=== PATIENT | male | born 1945 | race Caucasian/White ===

== ENCOUNTER → 2016-06-23 | Outpatient (CLI) | payer BC, OTHER ==
[2016-06-23 11:51] LABS: BASOPHILS # (AUTO) 0.04 10*3/UL; BASOPHILS % (AUTO) 0.4 % (0-1); EOSINOPHILS % (AUTO) 0.2 % (0-8); HEMATOCRIT 49.9 % (42.0-52.0); HEMOGLOBIN 16.6 g/dL (14.0-18.0); IMM GRAN % (AUTO) 0.5 % (0-5); IMM GRAN# (AUTO) 0.05 10*3/UL; LYMPHOCYTES # (AUTO) 0.89 10*3/uL; LYMPHOCYTES % (AUTO) 9.5 % (10-50); MEAN CORPUSCULAR HEMOGLOBIN 29.4 PG (27-31); MEAN CORPUSCULAR HGB CONC 33.3 g/dL (33-37); MEAN PLATELET VOLUME 9.6 FL (7.4-12.2); MONOCYTES # (AUTO) 0.66 10*3/UL (0.3-0.8); MONOCYTES % (AUTO) 7.1 % (5-15); NEUTROPHILS # (AUTO) 7.67 10*3/UL; NEUTROPHILS % (AUTO) 82.3 % (50-80); RDW COEFFICIENT OF VARIATION 14.4 % (11.5-14.5); RED BLOOD COUNT 5.65 10^6/uL (4.70-6.10); WHITE BLOOD COUNT 9.33 10^3/uL (4.8-10.8)
[2016-06-23 11:57] LABS: PLATELET MORPHOLOGY COMMENT NORMAL MORPHOLOGY (NORM)
[2016-06-23 11:59] LABS: PROTHROMBIN TIME 36.1 secs (9.7-11.4)
[2016-06-23 12:01] LABS: BILIRUBIN,TOTAL 1.2 mg/dL (0.3-1.2); BUN/CREATININE RATIO 16.42 (6-20); CALCIUM 9.5 mg/dL (8.7-10.7); CREATININE 1.4 mg/dL (0.70-1.50); POTASSIUM 4.3 meq/L (3.8-5.2); TOTAL PROTEIN 7.2 g/dL (6.1-8.0)
[2016-06-23 12:21] LABS: CREATINE KINASE MB 3.3 NG/DL (0.00-5.00); TROPONIN I 0.012 ng/mL (< 0.040)
--- NOTE | 2016-06-23 12:22 | DI ---
PA /LATERAL CHEST X-RAY, 06/23/2016 10:58 AM : Clinical History: Shortness of breath on exertion. Previous Exam: None at this facility. There is no acute soft tissue or bony abnormality. The patient is status post right humeral head repl acement and status post total reverse left shoulder replacement with resection of the lateral heads o f both clavicles. The heart size is normal. Lungs are clear. Mediastinal structures are normal. There are no pulmonary nodules. Reading: Normal chest x-ray. The patient has had previous bilateral shoulder replacements.
--- NOTE | 2016-06-23 16:18 | EKG ---
[address] [address] Measurements Intervals [place] Rate: 102 P: CA: 0 QRS: -3 QRSD: 100 T: -12 QT: 339 QTc: 398 Interpretive Statements ATRIAL FIBRILLATION WITH RAPID VENTRICULAR RESPONSE ABNORMAL RHYTHM ECG Compared to ECG 11/24/2012 09:53:28 No significant changes Electronically Signed On 06-24-16 17:18:03 MST by Jayden Alvarado [id number]
== END ==
LOC: MOB RAD 11:04
PROVIDERS: ATTEND Physician Assistant
DX: R06.02 Shortness of breath (principal); R07.9 Chest pain, unspecified; I48.91 Unspecified atrial fibrillation
CPT/HCPCS: 36415; 71020; 80053; 82553; 83690; 83880; 84484; 85025; 85610; 93005; 93010

== ENCOUNTER 2017-03-24 16:48 | Inpatient (IN) ==
[~2017-03-24 16:48] MED LIST: IPRATROPIUM/ALBUTEROL SULFATE 3 ML NEB NEB ONE
[2017-03-24] MEDS ORDERED: NORMAL SALINE 10 ML SYRINGE FLUSH IVP PRN ×2 (16:51→20:12)
[2017-03-24] MEDS ORDERED: IPRATROPIUM/ALBUTEROL SULFATE 3 ML NEB NEB ONE (16:51)
--- NOTE | 2017-03-24 17:22 | EKG ---
[address] [address] Measurements Intervals [place] Rate: 130 P: PA: 0 QRS: 78 QRSD: 92 T: -19 QT: 287 QTc: 364 Interpretive Statements ATRIAL FIBRILLATION WITH RAPID VENTRICULAR RESPONSE LOW QRS VOLTAGE IN EXTREMITY LEADS [QRS DEFLECTION < 0.5 mV IN LIMB LEADS] ABNORMAL QRS-T ANGLE [QRS-T AXIS DIFFERENCE > 60] INTERPRETATION BASED ON A DEFAULT AGE OF 40 YEARS Compared to ECG 06/23/2016 12:17:51 Low QRS voltage now present Electronically Signed On 03-25-17 09:27:58 MST by Osmin Bennett MD [id number]
[2017-03-24 17:26] LABS: BLOOD UREA NITROGEN 32 mg/dL (7-22); BUN/CREATININE RATIO 26.66 (6-20); MAGNESIUM 1.9 mg/dL (1.6-2.4); SERUM ALBUMIN 4.3 g/dL (3.5-4.8)
[2017-03-24 17:40] LABS: Hematocrit [HCT] 43.3 % (42.0-52.0); Hemoglobin [HGB] 13.6 g/dL (14.0-18.0); MEAN CORPUSCULAR HEMOGLOBIN 26.1 PG (27-31); MEAN CORPUSCULAR HGB CONC 31.4 g/dL (33-37); MEAN CORPUSCULAR VOLUME 83 FL (80-90); MEAN PLATELET VOLUME 7.2 FL (7.4-12.2); PLATELET MORPHOLOGY COMMENT NORMAL MORPHOLOGY (NORM); RBC MORPHOLOGY COMMENT NORMAL MORPHOLOGY (NORM); WBC MORPHOLOGY COMMENT NORMAL MORPHOLOGY (NORM)
[2017-03-24 17:41] LABS: BAND NEUTROPHILS % 1 % (0-10); BASOPHILS % (MANUAL) 0 % (0-1); EOSINOPHILS % (MANUAL) 0 % (0-8); MONOCYTES % (MANUAL) 7 % (0-12); NEUTROPHILS % (MANUAL) 82 % (50-80)
[2017-03-24] MEDS ORDERED: FUROSEMIDE 10 MG/1 ML - 2 ML VIAL IVP ONE (17:44)
[2017-03-24] MEDS ORDERED: Warfarin Tab 2 MG TAB PO ONE (18:31)
--- NOTE | 2017-03-24 18:31 | PDOC ---
Past Medical History Tobacco Use: Never Smoker Do you dip or chew tobacco: Yes In the Past 12 Months, Have Used or Abuse Any of the Following Substance: None Medication / Allergies Home Medications: Home Medications Medication Instructions Recorded Confirmed Type Fluoxetine HCl 40 mg PO DAILY 11/24/12 03/24/17 History Losartan Potassium 100 mg PO DAILY tab 11/24/12 03/24/17 History Pantoprazole Sodium 40 mg PO BID tab 11/24/12 03/24/17 History Propranolol HCl 40 mg PO BID ml 11/24/12 03/24/17 History Warfarin Sodium 3 mg PO DAILY tab 11/24/12 03/24/17 History Carbidopa/Levodopa [Sinemet 10-100 3 tab PO TID tab 06/23/16 03/24/17 History Mg Tablet] gabapentin 300 mg capsule 300 mg PO TID #30 cap 01/26/17 03/24/17 Rx Allergies/Adverse Reactions: Allergies 3 Allergy/AdvReac Type Severity Reaction Status Date / Time Penicillins Allergy HIVES Verified 03/24/17 16:49 vancomycin Allergy HIVES Verified 03/24/17 16:49 Exam - Vitals Vital Signs: Vital Signs Temperature 98.0 F Temperature Source Temporal Artery Scan Pulse Rate [Pulse Oximeter 132 Right] Pulse Rate 127 Respiratory Rate 24 Blood Pressure [Left Arm] 147/115 Pulse Ox 100 Oxygen Delivery Method Room Air Height 5 ft 11 in Weight 205 lb Results - Labs CBC and BMP: 03/25/17 06:25 03/25/17 06:25 Assessment and Plan - Patient Problems (1) CHF (congestive heart failure) Current Visit: Yes Status: Acute Comment: lasix dripp diuresed about 6 L BUN slightly going up. Lasix drip. 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 Code(s): I50.9 - Heart failure, unspecified (2) Pneumonia Current Visit: Yes Status: Acute Comment: levaquin daily Code(s): J18.9 - Pneumonia, unspecified organism (3) Atrial fibrillation Current Visit: Yes Status: Acute Comment: rate controlled /on coumadin give extra 1 mg at the give her extra labetalol 50 mg on the night better control I don't think we have good control with the Inderal he is taking I will stop that and start Cardizem CD 240 Code(s): I48.91 - Unspecified atrial fibrillation
[2017-03-24] MEDS ORDERED: Levofloxacin (Premix) 750 MG/150 ML PIGGYBACK IV ONE (18:34)
[2017-03-24] MEDS ORDERED: Sodium Chloride 0.9% 1,000 ML PRIMARY IV SCH (19:30)
--- NOTE | 2017-03-24 19:53 | DI ---
EXAM: XR Chest, 1 View CLINICAL HISTORY: dyspnea TECHNIQUE: Frontal view of the chest. COMPARISON: Chest x-ray 06/23/16 FINDINGS: Lungs: Reduced lung volumes with patchy atelectasis. Some accentuation of interstitial markings that could be from mild edema. Pleural space: Blunting of the costophrenic angles/effusions, better seen on CT No pneumothorax. Heart: Cardiomegaly. Mediastinum: Unremarkable. Bones/joints: Bilateral shoulder replacements. IMPRESSION: Reduced lung volumes with patchy atelectasis. Some accentuation of interstitial markings that could be from mild edema.
[2017-03-24] MEDS ORDERED: LIDOCAINE HCL 2 % 10 ML JELLY URO-JECT TOPICAL PRN (20:12)
[2017-03-24] MEDS ORDERED: LIDOCAINE W/ SODIUM BICARB 0.5 ML SYR SUBD PRN (20:12)
--- NOTE | 2017-03-24 20:30 | DI ---
EXAM: CT Angiography Chest With Intravenous Contrast CLINICAL HISTORY: sob elevated d-dimer TECHNIQUE: Axial computed tomographic angiography images of the chest with intravenous contrast using pulmonary embolism protocol. MIP reconstructed images were created and reviewed. COMPARISON: Chest x-ray 03/24/17 FINDINGS: Pulmonary arteries: No central pulmonary embolus. Aorta: No thoracic aortic aneurysm. Lungs: Mild pulmonary edema. Pleural space: Large bilateral pleural effusions. No pneumothorax. Heart: Cardiomegaly. Bones/joints: Bilateral shoulder replacements. No acute fracture. Soft tissues: Unremarkable. Lymph nodes: Unremarkable. No enlarged lymph nodes. Upper abdomen: Surgical clips in right upper abdomen. IMPRESSION: Failure with edema and effusions.
--- NOTE | 2017-03-24 20:38 | PDOC ---
General Adult HPI - General Chief Complaint: Dyspnea Stated Complaint: dyspnea Date Seen by Provider: 03/24/17 Time Seen by Provider: 16:45 Source: POSITIVE: Patient Exam Limitations: POSITIVE: No limitations Nurse's Notes Reviewed & Considered: Yes - History of Present Illness Initial Comment: The patient is a 72-year-old male who presents to the emergency department with increased shortness of breath. He states that he developed some upper respiratory symptoms after multiple family members have become ill with similar symptoms about a week ago. He had associated congestion and cough. Over the past 24 hours she has developed increased shortness of breath and wheezing. He also has noticed some increased swelling in his ankles. He has some tightness in his chest which she attributes to his breathing. He does have a history of atrial fibrillation and Parkinson's. He is on warfarin. He has had some chills and shakes over the past 24 hours. Have you received a tetanus shot in the past 10 years?: No - Patient Home Medications Home Medications: Home Medications Fluoxetine HCl 40 mg PO DAILY 11/24/12 Losartan Potassium 100 mg PO DAILY tab 11/24/12 Pantoprazole Sodium 40 mg PO BID tab 11/24/12 Propranolol HCl 40 mg PO BID ml 11/24/12 Warfarin Sodium 3 mg PO DAILY tab 11/24/12 Carbidopa/Levodopa [Sinemet 10-100 Mg Tablet] 3 tab PO TID tab 06/23/16 gabapentin 300 mg capsule 300 mg PO TID #30 cap 01/26/17 - Patient Allergies Allergies/Adverse Reactions: Allergies 3 Allergy/AdvReac Type Severity Reaction Status Date / Time Penicillins Allergy HIVES Verified 03/24/17 16:49 vancomycin Allergy HIVES Verified 03/24/17 16:49 Past Medical History - heen HEENT History: Denies History Cardiovascular History: Hypertension, Arrhythmia Additional Cardiovasular History: atrial fibrillation Respiratory History: Sleep Apnea, Home CPAP Use Gastrointestinal History: Denies History Genitourinary History: Denies History Endocrine History: Denies History Musculoskeletal History: Denies History Prosthesis or Implant: No Neurological History: Parkinson's Blood Disorders: Denies History Psychiatric History: Denies History Male Reproductive History: Denies History Cancer History: Denies History In Past Year Been Physically Harmed or Verbally Threatened: No History of MDRO: No Tobacco Use: Never Smoker In the Past 12 Months, Have Used or Abuse Any Substance: None Previous Surgical History: Yes Type / Date of Surgery: goran, appy, carpal tunnel, cataracts, rt shoulder x4, lt shoulder x3, back surgeries Anesthesia Reactions: No Malignant Hyperthermia: No Family History of Malignant Hyperthermia: No Significant Family History: No pertinent family hx Past Medical History Reviewed: Reviewed - No Changes ROS - Limitations ROS Limitations: No Limitations Constitution: REPORTS: Chills Cardiovascular: REPORTS: Edema (Both ankles over the past day or 2). DENIES: Chest Pain, Heart Racing, Heart Palpitations Respiratory: REPORTS: Cough Non Productive, Cough Productive, Shortness Of Breath, Wheezing Neurological: DENIES: Headache, Numbness, Weakness Gastrointestinal: REPORTS: Denies GI Symptoms Musculoskeletal: REPORTS: Lower Extremity Swelling Eyes: REPORTS: Denies Symptoms ENT: REPORTS: Congestion, Sore Throat Skin: DENIES: Rash General Adult Exam - General Appearance General Appearance: POSITIVE: Alert, Cooperative, No Acute Distress - HEENT HEENT: POSITIVE: Head Inspection Nml, Eyes Inspection Nml, Ears Inspection Nml, Pharyngeal Erythema. NEGATIVE: Pharyngeal Exudate - Neck Neck: POSITIVE: Normal Inspection. NEGATIVE: Lymphadenopathy - Respiratory Respiratory: POSITIVE: Other (On arrival the patient does have some tachypnea, he does have some wheezing bilaterally) - Cardiovascular Cardiovascular: POSITIVE: Irregularly Irreg. Rhythm Peripheral Pulses: Dorsalis-pedis (R): 2+, Dorsalis-pedis (L): 2+ - Abdomen Abdomen: Soft: (All Quadrants), Denies Tenderness: (All Quadrants), No Distention: (All Quadrants) - Skin Skin: POSITIVE: Normal Color, No Rash - Extremities Additional Extremities Details: He does have edema in both lower extremities below the knee, good dorsalis pedis pulse bilaterally - Neurological / Psychological Neurological: POSITIVE: Oriented X3, Motor Normal, Sensation Normal General Adult Progress - Results Reviewed by me Xrays/CTs/US Reviewed by me: Yes Discussed with Radiologist: Yes Radiology Findings: Chest x-ray shows some increased interstitial markings in the lower lobes bilaterally concerning for edema per radiologist. CTA of the chest shows no evidence of PE, there is evidence of pulmonary edema and pleural effusions consistent with congestive heart failure per radiologist. Lab Results Reviewed by Me: Yes CBC and BMP: 03/24/17 17:00 03/24/17 17:00 EKG Interpretation:: POSITIVE: Other (The patient does have atrial fibrillation with a rate in the 130s) - Patient's Progress MDM / ED Course: Shortly after arrival an IV was established, blood cultures and lactate were drawn with initial IV start. The patient did receive a DuoNeb with only minimal subjective improvement. He was mildly hypoxic on room air and was placed on O2 per nasal cannula. His initial EKG does show atrial fibrillation with the rate in the 130s, his telemetry reveals a heart rate in the 1 teens to 130s. His lab work is significant for a mildly elevated white count, INR is 1.75, his troponin is normal, his BNP is significantly elevated at 3600. His chest x-ray shows infiltrates versus edema in the lower lung martinez bilaterally. The patient appears to have some component of congestive heart failure with underlying atrial fibrillation. In addition he may have some early pneumonia. These findings were discussed with the patient and his family. He was given Levaquin IV after blood cultures had been drawn. In addition he was given Lasix 20 mg IV. The patient is discussed with Dr. Hernandez and he has agreed to admit the patient. CTA of the chest will be ordered to further evaluate for pneumonia and to rule out PE. - Consult Counseled: POSITIVE: Patient, Family, RE: Lab Results, RE: Radiology Results, RE : DX Patient Care Time - Estimated PCT Patient Care Time (In Minutes): 40 Vital Signs - Recent Vital Signs Vital Signs: Vital Signs (Last 8 hours) Temp Pulse Pulse Resp BP Pulse Ox 03/24/17 23:43 98.7 F 130 H 22 104/65 98 03/24/17 20:18 98.2 F 128 H 24 120/68 99 03/24/17 20:12 84 03/24/17 17:01 127 H 24 100 03/24/17 17:00 128 H 28 H 89 - VS Reviewed Vital Signs Reviewed: Yes Discharge Clinical Impression: CHF (congestive heart failure), Pneumonia, Atrial fibrillation Discharge Disposition: Admit to Inpatient Condition: Fair Date Decision to Admit to Inpatient: 03/25/17 Time Decision to Admit to Inpatient: 18:30
[2017-03-24] MEDS ORDERED: CARBIDOPA PO SCH (21:00)
[2017-03-24] MEDS ORDERED: Propranolol Tab 40 MG TAB PO SCH (21:00)
[2017-03-24] MEDS ORDERED: LEVODOPA PO SCH (21:00)
[2017-03-24] MEDS: Warfarin Tab 3 MG TAB PO SCH (21:34)
[2017-03-24] MEDS: PANTOPRAZOLE 40 MG TABLET PO SCH (21:34)
[2017-03-24] MEDS: GABAPENTIN 300 MG CAPSULE PO SCH (21:34)
[2017-03-24] MEDS ORDERED: METOPROLOL SUCCINATE 50 MG SR 24H TABLET PO ONE (23:26)
[2017-03-24] MEDS ORDERED: Magnesium Sulfate 2gm (Premix) 2 GM/50 ML BAG IV ONE (23:28)
[2017-03-24] MEDS ORDERED: Metoprolol TARTRATE Tab 50 MG TAB PO ONE ×2 (23:33→23:37)
[2017-03-25 06:59] LABS: BASOPHILS % (AUTO) 0.4 % (0-1); EOSINOPHILS % (AUTO) 1.4 % (0-8); Hematocrit [HCT] 38.2 % (42.0-52.0); Hemoglobin [HGB] 12.1 g/dL (14.0-18.0); MEAN CORPUSCULAR HEMOGLOBIN 26.1 PG (27-31); MEAN CORPUSCULAR HGB CONC 31.7 g/dL (33-37); MEAN CORPUSCULAR VOLUME 82 FL (80-90); MEAN PLATELET VOLUME 7.7 FL (7.4-12.2); MONOCYTES % (AUTO) 10.7 % (5-15); NEUTROPHILS % (AUTO) 76.4 % (50-80); RED BLOOD COUNT 4.65 10^6/uL (4.70-6.10)
[2017-03-25 07:00] LABS: NEUTROPHILS # (AUTO) 6.73 10*3/UL
[2017-03-25 07:01] LABS: BASOPHILS # (AUTO) 0.04 10*3/UL; EOSINOPHILS # (AUTO) 0.12 10*3/UL; LYMPHOCYTES # (AUTO) 0.98 10*3/uL; MONOCYTES # (AUTO) 0.94 10*3/UL (0.3-0.8); PLATELET MORPHOLOGY COMMENT NORMAL MORPHOLOGY (NORM); RBC MORPHOLOGY COMMENT NORMAL MORPHOLOGY (NORM); WBC MORPHOLOGY COMMENT NORMAL MORPHOLOGY (NORM)
[2017-03-25 07:06] LABS: BLOOD UREA NITROGEN 40 mg/dL (7-22); BUN/CREATININE RATIO 30.76 (6-20); MAGNESIUM 1.9 mg/dL (1.6-2.4); SERUM ALBUMIN 3.4 g/dL (3.5-4.8)
[2017-03-25] MEDS: DILTIAZEM CD 240 MG CAP PO SCH (08:55)
[2017-03-25] MEDS: FLUoxetine 20 MG CAPSULE PO SCH (08:55)
[2017-03-25] MEDS: LEVODOPA PO SCH ×3 (08:55→21:11)
[2017-03-25] MEDS: CARBIDOPA PO SCH ×3 (08:55→21:11)
[2017-03-25] MEDS: ASPIRIN EC 81 MG TABLET PO SCH (08:55)
[2017-03-25] MEDS: PANTOPRAZOLE 40 MG TABLET PO SCH ×2 (08:57→21:10)
[2017-03-25] MEDS: GABAPENTIN 300 MG CAPSULE PO SCH ×3 (08:57→21:10)
[2017-03-25] MEDS: Warfarin Tab 3 MG TAB PO SCH (21:10)
[2017-03-26 06:41] LABS: BLOOD UREA NITROGEN 41 mg/dL (7-22); BUN/CREATININE RATIO 34.16 (6-20); SERUM ALBUMIN 3.2 g/dL (3.5-4.8)
[2017-03-26] MEDS: LEVODOPA PO SCH ×2 (08:54→16:00)
[2017-03-26] MEDS: ASPIRIN EC 81 MG TABLET PO SCH (08:54)
[2017-03-26] MEDS: FLUoxetine 20 MG CAPSULE PO SCH (08:54)
[2017-03-26] MEDS: PANTOPRAZOLE 40 MG TABLET PO SCH (08:54)
[2017-03-26] MEDS: CARBIDOPA PO SCH ×2 (08:54→16:00)
[2017-03-26] MEDS: GABAPENTIN 300 MG CAPSULE PO SCH ×2 (08:55→16:04)
[2017-03-26] MEDS: DILTIAZEM CD 240 MG CAP PO SCH (08:55)
[2017-03-26 10:13] VITALS: RESP 20
--- NOTE | 2017-03-26 17:34 | DCSUMMARY ---
Hospitalization Summary Admit Date: 03/24/2017 Discharge Date: 03/26/17 Primary Diagnosis:: congestive heart failure secondary to atrial fibrillatio Hospital Course: This very pleasant 72-year-old male that came in with shortness of breath, Lortab edema, and pedal edema. He was diuresed, and his rate control was noted to be poor on 2 beta blockers at home. He was placed on Cardizem. That seemed to control his heart rate very well during the hospital stay. He diuresed over 8 L, and his symptoms resolved. We were able to get a copy of his echocardiogram from [facility] and the patient had notable normal left ventricular ejection fraction was 65% ejection fraction. His left and right atrial sizes were elevated. On top of this, he had estimated pulmonary arterial pressures of 40-45 mmHg. In addition to Cardizem, we felt it would be best to keep the patient on Lasix and potassium. He did have a CT scan of the chest that was negative for pulmonary emboli. Other medical issues during the hospital stay did not occur. INR at the time of discharge is somewhat low at 1.43. He is continuing on Coumadin. Today, no completes of chest pain, shortness breath, nausea or vomiting. Patient's current heart rate is 90. Assessment and Plan: 1. As per discharge assessments noted 2. Disposition: Patient is discharged home. 3. Condition on discharge, stable and improved. 4. Diet: regular diet 5. Activities: resume normal activities 6. Follow-Up: 1. Dr. Harkins in one week 2. See car builder in the next 4 weeks 7. Medications at the Time of Discharge: Home Medications Medication Instructions Recorded Confirmed Type Fluoxetine HCl 40 mg PO DAILY 11/24/12 03/24/17 History Losartan Potassium 100 mg PO DAILY tab 11/24/12 03/24/17 History Pantoprazole Sodium 40 mg PO BID tab 11/24/12 03/24/17 History Warfarin Sodium 3 mg PO DAILY tab 11/24/12 03/24/17 History Carbidopa/Levodopa [Sinemet 10-100 3 tab PO TID tab 06/23/16 03/24/17 History mg Tablet] gabapentin 300 mg capsule 300 mg PO TID #30 cap 01/26/17 03/24/17 Rx Diltiazem 24Hr ER [Cardizem Cd] 240 mg PO DAILY #30 cap.sr.24h 03/26/17 Rx Furosemide [Lasix] 20 mg PO QAM #30 tab 03/26/17 Rx Potassium Chloride 10 meq PO DAILY #30 tab.er.prt 03/26/17 Rx 8. Time, care, counseling and coordination of care for this discharge is greater than 30 minutes. Exam - Vitals Vital Signs: Vital Signs Vital Signs (24 hrs) Temp Pulse Pulse Pulse Resp BP Pulse Ox 03/26/17 13:00 97.8 F 90 20 134/69 90 03/26/17 09:00 97.2 F 115 H 20 92 03/26/17 07:00 98 98 104 H 18 03/26/17 05:00 98.3 F 104 H 20 133/73 92 03/26/17 03:00 106 H 03/26/17 00:27 97.5 F 98 22 107/63 92 03/25/17 23:00 109 H 03/25/17 21:00 97.8 F 97 24 110/58 94 03/25/17 19:00 100 21 Oxygen Delivery Method Room Air Height 5 ft 11 in Weight 183 lb 6.4 oz - General General Appearance: No Acute Distress, Cooperative - Head Head Exam: Normal Inspection, Normocephalic, Atraumatic - Eye Eye Exam: POSITIVE: No Scleral Icterus - ENT ENT Exam: POSITIVE: Mucous Membranes Moist - Respiratory Respiratory Exam: POSITIVE: Clear to Auscultation - Bilaterally, Breathing Non Labored - Cardiovascular Cardiovascular Exam: POSITIVE: No Clicks, No Gallops, No Rubs, Irregular Rhythm , Systolic Murmur - GI/Abdominal GI/Abdominal Exam: POSITIVE: Normal Bowel Sounds, Non Tender, Non Distended, Soft - Extremities Extremities Exam: POSITIVE: No Clubbing Present, No Cyanosis Present, Pedal Edema - Neurological Neurological Exam: POSITIVE: Alert, Oriented x 3, No Facial Droop, Speech Intact / Clear, Moves All Extremities Equally - Psychiatric Psychiatric Exam: POSITIVE: Normal Affect, Normal Mood Data Peritnent Studies: Laboratory Results 03/26/17 03/26/17 Range/Units 06:00 10:57 PT 15.2 H (9.7-11.4) secs INR 1.43 (0.00-5.90) N/A Sodium 138 (135-145) meq/L Potassium 4.0 (3.8-5.2) meq/L Chloride 103 (98-112) meq/L Carbon Dioxide 25 (23-33) meq/L Anion Gap 10 (5-20) BUN 41 H (7-22) mg/dL Creatinine 1.2 (0.70-1.50) mg/dL BUN/Creatinine Ratio 34.16 H (6-20) Glucose 144 H (78-110) mg/dL Calculated Osmolality 298.0 H (267-292) mOsm/kg Calcium 8.9 (8.7-10.7) mg/dL Total Bilirubin 0.4 (0.3-1.2) mg/dL AST 18 L (21-57) IU/L ALT 25 (21-72) IU/L Alkaline Phosphatase 117 (38-126) IU/L Total Protein 6.0 L (6.1-8.0) g/dL Albumin 3.2 L (3.5-4.8) g/dL Globulin 2.8 (2.50-4.10) g/dL Albumin/Globulin Ratio 1.10 L (1.3-2.0) mg/g 03/24/17 03/24/17 03/24/17 17:00 17:00 20:26 WBC Hgb Hct Plt Count Troponin I 0.020 0.019 NT-Pro-B [facility] 3670 H 03/25/17 06:25 WBC 8.8 Hgb 12.1 L Hct 38.2 L Plt Count 242 Troponin I NT-Pro-B Natriuret [address] [facility] [place] [address] PH: DD: [phone] FAX: [phone] ~DIAGNOSTIC IMAGING REPORT~ Patient: RUMA CASSIDY : 1945 Sex: M Age: 72 Exam Name: CT CTA Chest Non-Coronary [facility] Exam Date: 03/24/17 Report # : [id number] CPT Code: 66765 EMR/MR #: [id number] Ordering: JOLANTA KEE Admiting: CLEO HARDING MD. Primary: Oswaldo Harkins MD Attending: CLEO HARDING MD. Signed EXAM: CT Angiography Chest With Intravenous Contrast CLINICAL HISTORY: sob elevated d-dimer TECHNIQUE: Axial computed tomographic angiography images of the chest with intravenous contrast using pulmonary embolism protocol. MIP reconstructed images were created and reviewed. COMPARISON: Chest x-ray 03/24/17 FINDINGS: Pulmonary arteries: No central pulmonary embolus. Aorta: No thoracic aortic aneurysm. Lungs: Mild pulmonary edema. Pleural space: Large bilateral pleural effusions. No pneumothorax. Heart: Cardiomegaly. Bones/joints: Bilateral shoulder replacements. No acute fracture. Soft tissues: Unremarkable. Lymph nodes: Unremarkable. No enlarged lymph nodes. Upper abdomen: Surgical clips in right upper abdomen. IMPRESSION: Failure with edema and effusions. Dictated By: Ct Prescott MD Signed By: 03/24/172029 Ct Prescott MD Patient Problems - Patient Problem List (1) CHF (congestive heart failure) Current Visit: Yes Status: Acute Code(s): I50.9 - Heart failure, unspecified Qualifiers: Congestive heart failure type: unspecified congestive heart failure type Congestive heart failure chronicity: acute on chronic Qualified Code(s): I50.9 - Heart failure, unspecified Category: Medical (2) Atrial fibrillation Current Visit: Yes Status: Acute Code(s): I48.91 - Unspecified atrial fibrillation Qualifiers: Atrial fibrillation type: chronic Qualified Code(s): I48.2 - Chronic atrial fibrillation Category: Medical (3) Parkinsons Current Visit: Yes Status: Acute Code(s): G20 - Parkinson's disease Category: Medical
[2017-03-26 17:37] VITALS: BP 132/67; TEMP 97.6; O2SAT 94
== END 2017-03-26 18:23 | disposition home or self-care (01) | DRG 291 ==
LOC: ER 16:48 → MED/SURG 18:38
PROVIDERS: ADMIT Internal Medicine; ATTEND Internal Medicine